=== PATIENT | female | born 1935 | race Caucasian/White ===

== ENCOUNTER → 2018-11-21 | Outpatient (CLI) | payer MEDICARE, OTHER ==
--- NOTE | 2018-11-21 17:59 | KCIC ---
Three-view right foot study Clinical indications: Right foot pain for 6-9 months. FINDINGS: No acute fracture or dislocation or lytic process is evident. 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 There is moderate degenerative osteoarthritis of the tarsal metatarsal joints. There is mild degenerative spurring of the first metatarsal phalangeal joint. There is a prominent plantar spur of the calcaneus. IMPRESSION: No acute osseous abnormality. Electronically signed by: Earl Lira MD (11/21/2018 5:57 PM) [facility]
== END | disposition home or self-care (01) ==
LOC: KCIC 13:23
PROVIDERS: ATTEND Family Medicine
DX: M77.31 Calcaneal spur, right foot (principal); M19.071 Primary osteoarthritis, right ankle and foot
CPT/HCPCS: 73630

== ENCOUNTER → 2018-12-15 | Outpatient (CLI) | payer MEDICARE, OTHER ==
--- NOTE | 2018-12-15 14:28 | RAD ---
Bilateral lower extremity arterial duplex 12/15/2018 INDICATION: Right breast pain bilaterally. COMPARISON: None available TECHNIQUE: Contrast evaluation of bilateral lower extremity arterial system was performed utilizing grayscale, color Doppler spectral waveform analysis. FINDINGS: Peak systolic velocities (cm/s) Right: Common femoral artery: 124, biphasic Deep femoral artery: 63, biphasic Superficial femoral artery, proximal: 131, biphasic Superficial femoral artery, mid: 96, biphasic Superficial femoral artery, distal: 106, biphasic Popliteal artery: 81, biphasic Posterior tibial artery, proximal: 87, triphasic Posterior tibial artery, distal: 94, triphasic Peroneal artery: 53, biphasic Anterior tibial artery: 65, biphasic Dorsalis pedis artery: 67, triphasic Left: Common femoral artery: 119, biphasic Deep femoral artery: 52, biphasic Superficial femoral artery, proximal: 111, biphasic Superficial femoral artery, mid: 92, biphasic Superficial femoral artery, distal: 90, biphasic Popliteal artery: 78, biphasic Posterior tibial artery, proximal: 81, biphasic Posterior tibial artery, distal: 84, biphasic Peroneal artery: 91, biphasic Anterior tibial artery: 62, biphasic Dorsalis pedis artery: 62, biphasic IMPRESSION: Mild peripheral arterial vascular disease without significant stenosis or occlusion. Electronically signed by: Opal Bassett MD (12/15/2018 2:26 PM) [id number]
== END | disposition home or self-care (01) ==
LOC: US 14:37
PROVIDERS: ATTEND Podiatrist
DX: I73.89 Other specified peripheral vascular diseases (principal)
CPT/HCPCS: 93925